=== PATIENT | male | born 1995 | race Caucasian/White ===

== ENCOUNTER 2016-09-28 20:06 | Emergency (ER) | payer OTHER, SELFPAY ==
[~2016-09-28] VITALS: Ht 182.9 cm; Wt 74.8 kg
[2016-09-28] MEDS ORDERED: TYLE325T5 PO (20:14)
[2016-09-28] MEDS ORDERED: LIDOCAINE 1% MDV 20ML VIAL As Ordered ONE (21:42)
[2016-09-28] MEDS ORDERED: IBUP600T26 PO (22:04)
[2016-09-28] MEDS ORDERED: IBUPROFEN 600 MG TAB PO ONE (22:15)
[2016-09-28 22:45] VITALS: BP 122/78
--- NOTE | 2016-09-29 08:00 | REP ---
Clinical: Injury . Technique: Internal rotation, external rotation, and Y view right shoulder . Findings: No acute fracture or dislocation. The acromioclavicular and glenohumeral joints are intact. No periarticular calcifications or degenerative changes are appreciated. Sub acromial space is normal. Surrounding soft tissues are unremarkable. Impression: Normal right shoulder radiographs. Signed by Patrick Diehl MD 09/29/2016 07:52 A
--- NOTE | 2016-09-29 08:03 | REP ---
Clinical: Trauma . Technique: AP, lateral, bilateral oblique views of the right elbow. Findings: No acute fracture or dislocation is appreciated. Joint spaces are normal. Mild posterior soft tissue swelling cannot be excluded. Lateral view demonstrates normal positioning to the anterior and posterior fat pads without evidence for effusion/hemarthrosis. No subcutaneous emphysema or foreign body identified. Impression: Mild posterior swelling. No acute fracture dislocation. Signed by Patrick Diehl MD 09/29/2016 07:55 A
== END 2016-09-28 22:55 | disposition home or self-care (01) ==
LOC: M ED 20:48
DX: S51.011A Laceration without foreign body of right elbow, initial encounter (principal); S70.311A Abrasion, right thigh, initial encounter; S60.511A Abrasion of right hand, initial encounter; S40.811A Abrasion of right upper arm, initial encounter; V86.59XA Driver of other special all-terrain or other off-road motor vehicle injured in nontraffic accident, initial encounter; Y92.096 Garden or yard of other non-institutional residence as the place of occurrence of the external cause; Y93.89 Activity, other specified; Y99.9 Unspecified external cause status

== ENCOUNTER 2020-02-18 09:57 | Emergency (ER) | payer MEDICAID, OTHER, SELFPAY ==
[~2020-02-18] VITALS: Ht 177.8 cm; Wt 71.1 kg
[~2020-02-18 09:57] MED LIST: IBUP-1022 PO; TYLE325T5 PO
[2020-02-18] MEDS ORDERED: CYCLOBENZAPRINE 10MG TABLET PO ONE (11:15)
[2020-02-18] MEDS ORDERED: KETOROLAC 30 MG/ML 1ML VIAL IM ONE (11:15)
[2020-02-18] MEDS ORDERED: NAPR-885 PO (11:23)
[2020-02-18] MEDS ORDERED: CYCL-707 PO (11:23)
[2020-02-18] MEDS ORDERED: BOOSTRIX/ADACEL VACCINE (DIPHTH/PERTUSS/ACELL/TETANUS) 0.5ML SYR IM ONE (12:00)
[2020-02-18 12:11] VITALS: BP 105/59
== END 2020-02-18 12:12 | disposition home or self-care (01) ==
LOC: M ED 09:57
DX: M26.601 Right temporomandibular joint disorder, unspecified (principal); F17.200 Nicotine dependence, unspecified, uncomplicated; F12.10 Cannabis abuse, uncomplicated
CPT/HCPCS: 90471; 90715; 96372; 99283; J1885

== ENCOUNTER 2021-02-07 23:13 | Emergency (ER) | payer SELFPAY ==
[~2021-02-07] VITALS: Ht 175.3 cm; Wt 70.5 kg
[2021-02-07 23:13] VITALS: BP 122/85
[~2021-02-07 23:13] MED LIST changes: +CYCL-707 PO; +NAPR-885 PO
[2021-02-08] MEDS ORDERED: methocarbamoL 500 MG TAB PO ONE (00:50)
[2021-02-08] MEDS ORDERED: KETOROLAC TROMETHAMINE 10 MG TAB PO ONE (00:50)
[2021-02-08] MEDS ORDERED: METH-1164 PO (00:52)
== END 2021-02-08 01:50 | disposition home or self-care (01) ==
LOC: M ED 23:13
DX: S46.211A Strain of muscle, fascia and tendon of other parts of biceps, right arm, initial encounter (principal); X58.XXXA Exposure to other specified factors, initial encounter; Y92.89 Other specified places as the place of occurrence of the external cause; Y99.0 Civilian activity done for income or pay

== ENCOUNTER 2021-05-03 22:03 | Emergency (ER) | payer SELFPAY ==
[~2021-05-03] VITALS: Ht 177.8 cm; Wt 71.2 kg
[~2021-05-03 22:03] MED LIST changes: +METH-1164 PO
[2021-05-03 22:04] VITALS: BP 108/59
[2021-05-04] MEDS ORDERED: NAPR-837 PO (12:45)
== END 2021-05-03 23:49 | disposition left against medical advice (07) ==
LOC: M ED 22:03
DX: Z53.29 Procedure and treatment not carried out because of patient's decision for other reasons (principal)

== ENCOUNTER 2021-05-04 09:13 | Emergency (ER) | payer BC, OTHER, SELFPAY ==
[~2021-05-04] VITALS: Ht 180.3 cm; Wt 68.3 kg
--- NOTE | 2021-05-04 11:51 | REP ---
INDICATION: pain "pop" with lifting COMPARISON: None. TECHNIQUE: AP, lateral, bilateral oblique, and coned-down views of the lumbar spine. FINDINGS: Frontal radiograph suggests mild levoconvex scoliosis. Alignment and lordosis maintained. Vertebral bodies are intact. No acute fracture/compression injury or subluxation. Disc spaces are relatively normal/age-appropriate. No obvious spondylolysis or spondylolisthesis. IMPRESSION: Cannot exclude mild levoconvex scoliosis. Otherwise normal examination. <Electronically signed by Patrick Diehl > 05/04/21 [id number]
[2021-05-04] MEDS ORDERED: KETOROLAC 60MG 2ML VIAL IM ONE (12:15)
[2021-05-04] MEDS ORDERED: NAPR-837 PO (12:45)
[2021-05-04 13:02] VITALS: BP 101/61
== END 2021-05-04 13:08 | disposition home or self-care (01) ==
LOC: M ED 09:13
DX: S39.012A Strain of muscle, fascia and tendon of lower back, initial encounter (principal); W22.8XXA Striking against or struck by other objects, initial encounter; Y92.89 Other specified places as the place of occurrence of the external cause; Y99.0 Civilian activity done for income or pay; F12.20 Cannabis dependence, uncomplicated; Z77.098 Contact with and (suspected) exposure to other hazardous, chiefly nonmedicinal, chemicals
CPT/HCPCS: 72110; 96372; 99283; J1885

== ENCOUNTER 2021-06-23 18:15 | Emergency (ER) | payer BC, OTHER ==
[~2021-06-23] VITALS: Ht 177.8 cm; Wt 69.6 kg
[~2021-06-23 18:15] MED LIST changes: +NAPR-837 PO
[2021-06-23 23:35] LABS: GC DNA AMPLIFICATION NEGATIVE (NEGATIVE)
[2021-06-24] MEDS ORDERED: LevoFLOXacin 500 MG TABLET PO ONE (00:10)
[2021-06-24] MEDS ORDERED: LEVO500T4 PO (00:12)
[2021-06-24] MEDS ORDERED: NAPR-837 PO (00:12)
[2021-06-24 01:05] VITALS: BP 111/62
== END 2021-06-24 01:06 | disposition home or self-care (01) ==
LOC: M ED 18:15
DX: N45.1 Epididymitis (principal)

== ENCOUNTER 2024-09-29 12:09 | Emergency (ER) | payer BC ==
[~2024-09-29] VITALS: Ht 177.8 cm; Wt 66.8 kg
[~2024-09-29 12:09] MED LIST changes: +LEVO1TAB39 PO
[2024-09-29 13:09] LABS: BASO % 0.4 % (0.0-1.0); EOS % 0.4 % (0.0-3.0); HEMOGLOBIN 13.7 g/dl (13.5-17.5); LYMPH # 1.9 10^3/uL (1.5-5.0); LYMPH % 38.2 % (24.0-44.0); MEAN CORPUSCULAR HEMOGLOBIN 32.3 pg (27.0-33.0); MEAN CORPUSCULAR HGB CONC 34.3 g/dl (32.0-36.5); MEAN CORPUSCULAR VOLUME 94.3 fl (80.0-96.0); MONO # 0.5 10^3/uL (0.0-0.8); MONO % 9.1 % (2.0-8.0); NEUTROPHILS # 2.5 10^3/uL (1.5-8.5); NEUTROPHILS % 51.7 % (36.0-66.0); PLATELET COUNT, AUTOMATED 191 10^3/uL (150-450); RED BLOOD COUNT 4.24 10^6/uL (4.30-6.10); WHITE BLOOD COUNT 4.9 10^3/uL (4.0-10.0)
[2024-09-29] MEDS: IBUPROFEN 600MG TAB PO ONE (13:26)
[2024-09-29 13:37] LABS: BLOOD UREA NITROGEN 11 MG/DL (9-23); CALCIUM LEVEL 9.6 MG/DL (8.5-10.1); CARBON DIOXIDE LEVEL 30 MMOL/L (20-31); CHLORIDE LEVEL 106 MMOL/L (98-107); CREATININE FOR GFR 0.86 MG/DL (0.70-1.30); GLOMERULAR FILTRATION RATE > 90.0 (>60); GLUCOSE, FASTING 97 MG/DL (60-100); POTASSIUM SERUM 3.9 MMOL/L (3.5-5.1); SODIUM LEVEL 144 MMOL/L (136-145)
[2024-09-29 13:51] LABS: APPEARANCE, URINE CLEAR (CLEAR); BACTERIA, URINE AUTO NEGATIVE (NEGATIVE); BILIRUBIN, URINE AUTO NEGATIVE (NEGATIVE); BLOOD, URINE BLOOD NEGATIVE (NEGATIVE); COLOR, URINE STRAW (YELLOW); GLUCOSE, URINE (UA) AUTO NEGATIVE (NEGATIVE); KETONE, URINE AUTO NEGATIVE (NEGATIVE); LEUKOCYTE ESTERASE, URINE AUTO NEGATIVE (NEGATIVE); NITRITE, URINE AUTO NEGATIVE (NEGATIVE); PROTEIN, URINE AUTO NEGATIVE (NEGATIVE); RBC, URINE AUTO 0 /HPF (0-3); SPECIFIC GRAVITY URINE AUTO 1.011 (1.002-1.035); SQUAMOUS EPITHELIAL CELL UR AU 0 /HPF (0-6); UROBILINOGEN, URINE AUTO 0.2 mg/dL (0.0-2.0); WBC, URINE AUTO 0 /HPF (0-3)
[2024-09-29] MEDS ORDERED: IBUP-1022 PO (14:02)
[2024-09-29 14:24] VITALS: BP 105/78; TEMP 97.2; O2SAT 100
[2024-09-29 14:50] LABS: Trichomonas vaginalis (AMP) NOT DETECTED (NEGATIVE)
[2024-09-29 15:14] LABS: GC DNA AMPLIFICATION NEGATIVE (NEGATIVE)
== END 2024-09-29 14:26 | disposition home or self-care (01) ==
LOC: M ED 12:09
DX: N50.811 Right testicular pain (principal)